=== PATIENT | female | born 1945 | race Caucasian/White ===

== ENCOUNTER 2020-05-27 12:33 | Emergency (ER) | payer MEDICARE, BC ==
--- NOTE | 2020-05-27 13:12 | EDM.PDOC ---
ED HPI GENERAL MEDICAL PROBLEM - General Chief Complaint: Lower Extremity Injury/Pain Stated Complaint: BLOOD CLOT IN HIP AND LEG Time Seen by Provider: 05/27/20 13:01 Source of Information: Reports: Patient, Provider, RN Notes Reviewed History Limitations: Reports: No Limitations - History of Present Illness INITIAL COMMENTS - FREE TEXT/NARRATIVE: 74-year-old female presents emergency department today complaint of right calf pain, she was initially in the pain clinic however started complaining of calf pain and concern of the provider that evaluated her recommend evaluation for DVT. She denies any recent travel or sitting for long periods of time. No shortness of breath or chest pain - Related Data Allergies Allergy/AdvReac Type Severity Reaction Status Date / Time aloe vera [From Vagisil] Allergy Itching Verified 05/27/20 12:54 benzocaine [From Vagisil] Allergy Itching Verified 05/27/20 12:54 lisinopril Allergy Itching Verified 05/27/20 12:54 mineral oil [From Vagisil] Allergy Itching Verified 05/27/20 12:54 Penicillins Allergy Rash Verified 05/27/20 12:54 resorcinol [From Vagisil] Allergy Itching Verified 05/27/20 12:54 starch [From Vagisil] Allergy Itching Verified 05/27/20 12:54 vitamin E acetate Allergy Itching Verified 05/27/20 12:54 [From Vagisil] vitamins A and D Allergy Itching Verified 05/27/20 12:54 [From Vagisil] Home Meds: Home Meds Albuterol Sulfate [Albuterol Sulfate HFA] 2 inh INH QID PRN 07/08/13 [History] Ammonium Lactate [Lac-Hydrin 12% Crm] 1 applic TOP BID 07/08/13 [History] Aspirin [Adult Low Dose Aspirin EC] 81 mg PO DAILY 07/08/13 [History] Multivitamin with Minerals [Multiple Vitamin] 1 tab PO DAILY 07/08/13 [History] Venlafaxine [Effexor XR 24 Hr] 150 mg PO DAILY 07/08/13 [History] Vit B12/Folic Acid/B6/Aa No.15 [Glycotrol] 1 each PO DAILY 07/08/13 [History] Vitamin B Complex [B-100 Complex] 1 each PO DAILY 07/08/13 [History] Calcium Citrate/Vitamin D3 [Calcium Citrate + D] 1 each PO BID 09/25/15 [History] Ipratropium [Atrovent 0.06% Nasal [place]] 2 sprays ELLYN QID PRN 09/25/15 [History] SUMAtriptan [Imitrex] 50 mg PO ASDIRECTED PRN 09/25/15 [History] tiZANidine HCl [Zanaflex] 4 mg PO TID PRN 09/25/15 [History] traZODone HCl [Trazodone HCl] 50 mg PO DAILY 09/25/15 [History] Naproxen 500 mg PO BID 03/08/16 [History] Triamcinolone Acetonide [Triamcinolone Acetonide 0.1% Oint] 1 applic TOP TID PRN 03/08/16 [History] Losartan Potassium 50 mg PO DAILY 08/06/19 [History] atorvaSTATin Calcium [Atorvastatin Calcium] 10 mg PO DAILY 08/06/19 [History] hydroCHLOROthiazide [Hydrochlorothiazide] 12.5 mg PO DAILY 08/06/19 [History] Past Medical History HEENT History: Reports: Impaired Vision Other HEENT History: wears glasses Cardiovascular History: Reports: Hypertension Respiratory History: Reports: Pneumonia, Recurrent, Sleep Apnea Gastrointestinal History: Reports: Hemorrhoids 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 bilat hip pain "the right one is the worse" Endocrine/Metabolic History: Reports: Obesity/BMI 30+ - Infectious Disease History Infectious Disease History: Reports: Chicken Pox, Measles, Mononucleosis, Mumps - Past Surgical History Head Surgeries/Procedures: Reports: None HEENT Surgical History: Reports: Adenoidectomy, Tonsillectomy Cardiovascular Surgical History: Reports: None Respiratory Surgical History: Reports: None GI Surgical History: Reports: Appendectomy, Colonoscopy, EGD, Hernia, Abdominal, Hernia, Inguinal, Hernia Repair/Other Female Surgical History: Reports: Section, Tubal Ligation Endocrine Surgical History: Reports: None Musculoskeletal Surgical History: Reports: None Dermatological Surgical History: Reports: None Social & Family History - Family History Cardiac: Reports: Heart Failure, Pacemaker Endocrine/Metabolic: Reports: Diabetes, Type I Oncologic: Reports: Prostate - Caffeine Use Caffeine Use: Reports: Coffee Review of Systems - Review of Systems Review Of Systems: See Below Constitutional: Reports: No Symptoms Respiratory: Reports: No Symptoms Cardiovascular: Reports: No Symptoms GI/Abdominal: Reports: No Symptoms Musculoskeletal: Reports: Leg Pain, Muscle Pain ED EXAM, GENERAL - Physical Exam Exam: See Below Free Text/Narrative:: Examination of the right lower extremity and on appreciate any significant edema there is no difference between the 2 tabs is tender to palpation even lightly, range of motion of the lower extremity I do not appreciate any erythema or warm th Exam Limited By: No Limitations General Appearance: Alert, WD/WN, No Apparent Distress Respiratory/Chest: No Respiratory Distress Course - Vital Signs Last Recorded V/S: Last Vital Signs Temp 98 F 05/27/20 13:00 Pulse 70 05/27/20 13:19 Resp 16 05/27/20 13:00 BP 116/58 L 05/27/20 13:19 Pulse Ox 94 L 05/27/20 13:19 - Orders/Labs/Meds Orders: Active Orders 24 hr Category Date Time Status VL Duplex Lwr Ext Veins Ltd Rt [US] Stat Exams 05/27/20 15:01 Ordered HYDROmorphone [Dilaudid] Med 05/27/20 15:33 Once 1 mg IM ONETIME ONE Labs: Laboratory Tests 05/27/20 05/27/20 05/27/20 Range/Units 13:25 13:25 13:25 WBC 8.1 (4.5-11.0) K/uL RBC 3.98 (3.30-5.50) M/uL Hgb 11.7 L (12.0-15.0) g/dL Hct 37.3 (36.0-48.0) % MCV 94 (80-98) fL MCH 29 (27-31) pg MCHC 31 L (32-36) % Plt Count 298 (150-400) K/uL Neut % (Auto) 60 (36-66) % Lymph % (Auto) 28 (24-44) % [place] % (Auto) 9 H (2-6) % Eos % (Auto) 3 (2-4) % Baso % (Auto) 1 (0-1) % PT (9.5-12.0) sec INR (0.80-1.20) D-Dimer, Quantitative 690.55 H (0.0-500.0) ng/mL Sodium 140 (140-148) mmol/L Potassium 3.9 (3.6-5.2) mmol/L Chloride 104 (100-108) mmol/L Carbon Dioxide 29 (21-32) mmol/L Anion Gap 7.4 (5.0-14.0) mmol/L BUN 18 (7-18) mg/dL Creatinine 0.8 (0.6-1.0) mg/dL Est Cr Clr Drug Dosing 50.27 mL/min Estimated GFR (MDRD) > 60 (>60) Glucose 91 (74-106) mg/dL Calcium 9.3 (8.5-10.1) mg/dL 05/27/20 Range/Units 13:25 WBC (4.5-11.0) K/uL RBC (3.30-5.50) M/uL Hgb (12.0-15.0) g/dL Hct (36.0-48.0) % MCV (80-98) fL MCH (27-31) pg MCHC (32-36) % Plt Count (150-400) K/uL Neut % (Auto) (36-66) % Lymph % (Auto) (24-44) % [place] % (Auto) (2-6) % Eos % (Auto) (2-4) % Baso % (Auto) (0-1) % PT 10.2 (9.5-12.0) sec INR 0.93 (0.80-1.20) D-Dimer, Quantitative (0.0-500.0) ng/mL Sodium (140-148) mmol/L Potassium (3.6-5.2) mmol/L Chloride (100-108) mmol/L Carbon Dioxide (21-32) mmol/L Anion Gap (5.0-14.0) mmol/L BUN (7-18) mg/dL Creatinine (0.6-1.0) mg/dL Est Cr Clr Drug Dosing mL/min Estimated GFR (MDRD) (>60) Glucose (74-106) mg/dL Calcium (8.5-10.1) mg/dL Departure - Departure Time of Disposition: 15:34 Disposition: Home, Self-Care 01 Condition: Fair Clinical Impression: Hip pain, right - Discharge Information Instructions: Hip Pain Referrals: Te Hobson MD [Primary Care Provider] - Forms: ED Department Discharge Additional Instructions: You with your regular medications, please make a follow-up appointment with the pain clinic for your trigger point injections call or return to the emergency department worsening of symptoms Sepsis Event Note (ED) - Evaluation Sepsis Screening Result: No Definite Risk - Focused Exam Vital Signs: Vital Signs Temp Pulse Resp BP Pulse Ox 05/27/20 13:19 70 116/58 L 94 L 05/27/20 13:00 98 F 77 16 137/62 96 05/27/20 12:51 98 F 77 16 137/62 96 - My Orders Last 24 Hours: My Active Orders 05/27/20 15:01 VL Duplex Lwr Ext Veins Ltd Rt [US] Stat 05/27/20 15:33 HYDROmorphone [Dilaudid] 1 mg IM ONETIME ONE - Assessment/Plan Last 24 Hours: My Active Orders 05/27/20 15:01 VL Duplex Lwr Ext Veins Ltd Rt [US] Stat 05/27/20 15:33 HYDROmorphone [Dilaudid] 1 mg IM ONETIME ONE Plan: Assessment Acuity = acute Site and laterality = right leg pain Etiology = unknown probably related to chronic hip pain Manifestations = none Location of injury = Home Lab values = CBC, BMP unremarkable D-dimer slightly elevated around 600 ultrasound was negative for any DVT Plan Provided 1 mg hydromorphone in the emergency department for pain control she will then follow-up with pain clinic for her trigger point injections This note was dictated using [employer] voice recognition software please call with any questions on syntax or grammar.
[2020-05-27 13:33] VITALS: BP 116/58; PULSE 70
[2020-05-27] MEDS ORDERED: HYDROmorphone 1 MG/ML Syringe IM ONE (15:33)
--- NOTE | 2020-05-27 15:57 | CRLUS ---
INDICATION: Elevated D-dimer. Right leg pain. Previous radiofrequency ablation superficial veins. COMPARISON: None available. FINDINGS: Ultrasound of the venous drainage of the right lower extremity shows no evidence of deep venous thrombosis. There is normal antegrade flow from the posterior tibial and peroneal veins superiorly through the common femoral vein. There is normal augmentation and compressibility of these veins. The superior right greater saphenous vein is patent. The left common femoral vein is widely patent. IMPRESSION: No evidence of deep venous thrombosis on ultrasound examination of the right lower extremity. Dictated by Guy Xiong MD @ May 27 2020 3:53PM Signed by Dr. Guy Xiong @ May 27 2020 3:54PM
== END 2020-05-27 16:09 | disposition home or self-care (01) ==
LOC: JP.ED 12:33
DX: M25.551 Pain in right hip (principal); I10 Essential (primary) hypertension; E66.9 Obesity, unspecified; Z68.33 Body mass index [BMI] 33.0-33.9, adult; Z91.018 Allergy to other foods; Z88.4 Allergy status to anesthetic agent; Z88.8 Allergy status to other drugs, medicaments and biological substances; Z88.0 Allergy status to penicillin; Z79.82 Long term (current) use of aspirin; Z79.899 Other long term (current) drug therapy
CPT/HCPCS: 36415; 80048; 85025; 85379; 85610; 93971; 96372; 99284; J1170

== ENCOUNTER → 2021-04-22 | Day surgery (SDC) | payer MEDICARE, OTHER ==
[~2021-04-22] MED LIST: Ondansetron 4 MG/2 ML SDV ONE; Propofol 200 MG/20 ML SDV ONE; Sodium Chloride 0.9% 1,000 ML IV SCH
[2021-04-22 12:21] VITALS: BP 116/69; PULSE 67
--- NOTE | 2021-04-23 09:20 | OR ---
DATE OF PROCEDURE: 04/22/2021 SURGEON: Hari Singh MD PROCEDURES: 1. Esophagogastroduodenoscopy with dilation. 2. Biopsy, gastroesophageal junction. COMPLICATION: None. 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 ANESTHETIC: MAC. PREOPERATIVE DIAGNOSIS: Dysphagia. POSTOPERATIVE DIAGNOSIS: Dysphagia. FINDINGS: 1. Regular Z-line at GE junction concerning for reflux disease (biopsied in all 4 quadrants). 2. Certain area in the GE junction dilated with 45-Turkmen balloon. RISKS: Risks, benefits, alternatives, and limitations including, but not limited to infection, bleeding, perforation, false positives, false negatives were explained to the patient and she wished to proceed. PROCEDURE IN DETAIL: The patient was placed in left lateral decubitus position. The EGD scope was introduced and advanced atraumatically to the second part of the duodenum. No evidence of duodenitis or ulceration. Within in the stomach itself, there was no gastritis or ulceration. GE junction had regular Z-line concerning for reflux disease, biopsied in all 4 quadrants multiple times using cold biopsy forceps. Air was removed from the stomach. The remainder of the esophagus was inspected without abnormality. The patient tolerated the procedure well. Hari Singh MD /[id number]
--- NOTE | 2021-04-28 08:54 | OR ---
DATE OF PROCEDURE: 04/22/2021 SURGEON: Hari Singh MD ADDENDUM: Also of note, the patient underwent dilation with a 45-[place] balloon. The balloon attached to the EGD scope straddled the gastrojejunal anastomosis and advanced to stage II proximally. The balloon was deflated. No abnormalities noted. The patient tolerated procedure well. Hari Singh MD /[id number]
== END ==
LOC: JP.SDS 09:33
PROVIDERS: ATTEND Surgery
DX: R13.10 Dysphagia, unspecified (principal); G47.33 Obstructive sleep apnea (adult) (pediatric); J45.909 Unspecified asthma, uncomplicated; I10 Essential (primary) hypertension; I25.10 Atherosclerotic heart disease of native coronary artery without angina pectoris; E78.5 Hyperlipidemia, unspecified; E66.9 Obesity, unspecified; Z88.0 Allergy status to penicillin; Z88.8 Allergy status to other drugs, medicaments and biological substances; Z79.899 Other long term (current) drug therapy
CPT/HCPCS: 43239; 43249; J2405; J2704; J7030

== ENCOUNTER 2023-01-23 07:32 | Day surgery (SDC) | payer MEDICARE, OTHER ==
[~2023-01-23 07:32] MED LIST changes: +Midazolam 1 MG/ML 2 ML SDV ONE; -Ondansetron 4 MG/2 ML SDV ONE; -Sodium Chloride 0.9% 1,000 ML IV SCH; +fentaNYL 50 MCG/ML SDV ONE
[2023-01-23] MEDS ORDERED: Lactated Ringers 1,000 ML IV SCH (08:00)
[2023-01-23 10:32] VITALS: BP 139/70; PULSE 67
== END 2023-01-23 09:50 | disposition home or self-care (01) ==
LOC: JP.SDS 07:32
PROVIDERS: ATTEND Student in an Organized Health Care Education/Training Program
DX: Z12.11 Encounter for screening for malignant neoplasm of colon (principal); D12.5 Benign neoplasm of sigmoid colon; K62.1 Rectal polyp; I25.10 Atherosclerotic heart disease of native coronary artery without angina pectoris; G47.33 Obstructive sleep apnea (adult) (pediatric); K21.9 Gastro-esophageal reflux disease without esophagitis; F41.9 Anxiety disorder, unspecified; F32.A Depression, unspecified
CPT/HCPCS: 45380; 88305; J2250; J2704; J3010; J7120

== ENCOUNTER 2023-07-19 08:01 | Inpatient (IN) | payer MEDICARE, OTHER ==
[2023-07-19] MEDS: Lactated Ringers 1,000 ML IV SCH (08:33)
[2023-07-19] MEDS: Nozin Nasal Sanitizer NASBOTH SCH ×2 (08:33→20:27)
[2023-07-19 08:38] LABS: HEMATOCRIT 36.4 % (34.3-46.0); HEMOGLOBIN 12.1 g/dL (11.2-15.5); MEAN CORPUSCULAR HEMOGLOBIN 30.7 pg (31.6-35.5); MEAN CORPUSCULAR HGB CONC 33.2 g/dL (31.6-35.5); MEAN CORPUSCULAR VOLUME 92.4 fL (81.4-99.0); RED BLOOD CELL COUNT 3.94 M/uL (3.77-5.24); WHITE BLOOD CELL COUNT,WBC 7.8 K/uL (3.2-11.0)
[2023-07-19] MEDS ORDERED: Propofol 200 MG/20 ML SDV ONE (10:16)
[2023-07-19] MEDS ORDERED: fentaNYL 100 MCG/2 ML SDV ONE (10:16)
[2023-07-19] MEDS ORDERED: Midazolam 1 MG/ML 2 ML SDV ONE (10:16)
[2023-07-19] MEDS ORDERED: Bupivacaine 0.5% 30 ML SDV ONE (10:20)
[2023-07-19] MEDS ORDERED: Lactated Ringers 1,000 ML ONE (10:56)
[2023-07-19] MEDS ORDERED: Morphine 2 MG/ML SYRINGE IVPUSH PRN (11:12)
[2023-07-19] MEDS ORDERED: traMADol 50 MG Tab PO PRN (11:12)
[2023-07-19] MEDS ORDERED: Acetaminophen/HYDROcodone 325-5 MG Tab PO PRN (11:20)
[2023-07-19] MEDS ORDERED: SUMAtriptan 50 MG Tab PO PRN (11:21)
[2023-07-19] MEDS ORDERED: Albuterol 6.7 GM Inhaler INH PRN (11:21)
[2023-07-19] MEDS ORDERED: Nitroglycerin 0.4 MG Tab.SL SL PRN (11:21)
[2023-07-19] MEDS: Sodium Chloride 0.9% 1,000 ML IV SCH (12:20)
[2023-07-19] MEDS: Acetaminophen 325 MG Tab PO SCH (13:57)
[2023-07-19] MEDS: Ipratropium 0.06% Nasal Spray 15 ML Bottle NASBOTH SCH (13:57)
[2023-07-19] MEDS: Ondansetron 4 MG Tab.DIS PO PRN (14:06)
[2023-07-19] MEDS: ceFAZolin 1 GM in Premix Bag 1 BAG IV SCH (17:43)
[2023-07-19] MEDS: Acetaminophen/HYDROcodone 325-5 MG Tab PO PRN (18:20)
[2023-07-19] MEDS: ceFAZolin 1 GM in Premix Bag 1 BAG IV ONE (20:22)
[2023-07-19] MEDS: Latanoprost 0.005% Ophth Soln 2.5 ML Bottle EYEBOTH SCH (20:29)
[2023-07-19] MEDS: traZODone 50 MG Tab PO SCH (20:29)
[2023-07-19] MEDS: atorvaSTATin 20 MG Tab PO SCH (20:29)
[2023-07-19] MEDS: Betamethasone Dipropionate 0.05% Crm 15 GM Tube TOP SCH (20:30)
[2023-07-19] MEDS ORDERED: BETAMETHASONE TOP SCH (21:00)
[2023-07-19] MEDS ORDERED: [UNRECOGNIZED DRUG - OTHER] TOP SCH (21:00)
[2023-07-19] MEDS ORDERED: PROPYLENE GLYC TOP SCH (21:00)
[2023-07-20] MEDS: Acetaminophen/HYDROcodone 325-10 MG Tab PO PRN (06:17)
[2023-07-20] MEDS: Cetirizine 10 MG Tab PO SCH (07:26)
[2023-07-20] MEDS ORDERED: [UNRECOGNIZED DRUG - OTHER] PO SCH (09:00)
[2023-07-20] MEDS ORDERED: LOSARTAN PO SCH (09:00)
[2023-07-20] MEDS ORDERED: HYDROCHLOROTHIAZIDE PO SCH (09:00)
[2023-07-20] MEDS: Venlafaxine 75 MG Cap.ER PO SCH (09:01)
[2023-07-20] MEDS: Aspirin 81 MG Tab.EC PO SCH (09:01)
[2023-07-20] MEDS: Polyethylene Glycol 3350 Powder 17 GM Packet PO SCH (09:02)
[2023-07-20] MEDS: Hydrochlorothiazide 12.5 MG Cap PO SCH (09:02)
[2023-07-20] MEDS: Losartan 50 MG Tab PO SCH (09:32)
[2023-07-21 05:50] VITALS: PULSE 67
[2023-07-21 10:17] VITALS: BP 114/51
== END 2023-07-21 12:40 | disposition home health service (06) | DRG 502 ==
LOC: JP.SDS 08:01 → JP.MS 12:10
PROVIDERS: ADMIT Specialist; ATTEND Specialist
PROC: 0LQJ0ZZ Repair Right Hip Tendon, Open Approach (ICD-10-PCS; principal; 2023-07-19 09:00)
DX: M70.61 Trochanteric bursitis, right hip (principal); S76.011A Strain of muscle, fascia and tendon of right hip, initial encounter; J45.909 Unspecified asthma, uncomplicated; E66.9 Obesity, unspecified; F32.5 Major depressive disorder, single episode, in full remission; E78.5 Hyperlipidemia, unspecified; K21.9 Gastro-esophageal reflux disease without esophagitis; I25.2 Old myocardial infarction; I10 Essential (primary) hypertension; R73.03 Prediabetes; R53.83 Other fatigue; J32.4 Chronic pansinusitis; G89.29 Other chronic pain; M54.42 Lumbago with sciatica, left side; M54.41 Lumbago with sciatica, right side; G47.33 Obstructive sleep apnea (adult) (pediatric); H91.93 Unspecified hearing loss, bilateral; Z98.84 Bariatric surgery status; Z68.31 Body mass index [BMI] 31.0-31.9, adult; Z88.0 Allergy status to penicillin; Z88.8 Allergy status to other drugs, medicaments and biological substances; X58.XXXA Exposure to other specified factors, initial encounter; Y92.89 Other specified places as the place of occurrence of the external cause
CPT/HCPCS: 36415; 85027; 97161-GP; 97530-GP; A9270-GY; J0665; J0690; J2250; J2704; J3010; J7030; J7120; Q0162

== ENCOUNTER 2023-10-18 08:37 | Day surgery (SDC) | payer MEDICARE, OTHER ==
[2023-10-18] MEDS: Sodium Chloride 0.9% 1,000 ML IV SCH (08:59)
[2023-10-18] MEDS ORDERED: fentaNYL 50 MCG/ML SDV ONE (10:41)
[2023-10-18] MEDS ORDERED: Propofol 200 MG/20 ML SDV ONE (10:41)
[2023-10-18 12:52] VITALS: BP 124/68; PULSE 72
== END 2023-10-18 13:00 | disposition home or self-care (01) ==
LOC: JP.SDS 08:37
PROVIDERS: ATTEND Surgery
DX: K21.00 Gastro-esophageal reflux disease with esophagitis, without bleeding (principal); K22.89 Other specified disease of esophagus; I10 Essential (primary) hypertension; J45.909 Unspecified asthma, uncomplicated; I25.10 Atherosclerotic heart disease of native coronary artery without angina pectoris; G47.33 Obstructive sleep apnea (adult) (pediatric); R13.10 Dysphagia, unspecified
CPT/HCPCS: 43239; J2704; J3010; J7030; 00731-QZ; 88305